=== PATIENT | male | born 1970 | race Caucasian/White ===

== ENCOUNTER 2016-11-22 11:31 | Emergency (ER) | payer OTHER ==
[~2016-11-22] VITALS: Ht 182.9 cm; Wt 119.1 kg
[~2016-11-22 11:31] MED LIST: ATEN50TA PO; BUSP10TA2 PO; CLON0.1T PO; IBUP800T28 PO; OXYC1TAB24 PO; SERT20OR PO
[2016-11-22 11:40] VITALS: BP 154/106; PULSE 86; RESP 18; O2SAT 94
--- NOTE | 2016-11-22 12:28 | ED.REPORT ---
HPI-Bite: Human/Animal Date of Service November 22, 2016 ED Provider: Clay Ta PA-C Yannick is an otherwise healthy 46-year-old male presenting with chief complaint of a rat bite. 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 The rat was not and bit his right middle finger. Patient reports copious bleeding. He washed the injury for approximately 5 minutes with warm soap and water. Patient reports that it has been 9 years since his last tetanus booster. Denies diabetes, HIV, immunosuppression, bleeding/ clotting problems. Nursing Notes Stated Complaint: BITE ON RIGHT MIDDLE FINGER Chief Complaint: Extremity Trauma Nursing Notes Reviewed: Yes Allergies: Coded Allergies: droperidol (Verified Allergy, Unknown, cologenic reaction, 10/19/15) Scheduled Atenolol (Atenolol) 50 Mg Tablet 50 MG PO DAILY Buspirone (Buspirone) 10 Mg Tablet 10 MG PO BID Clonidine (Clonidine) 0.1 Mg Tablet 0.1 MG PO HS Penicillin V Potassium (Penicillin V Potassium) 500 Mg Tablet 500 MG PO QID Sertraline HCl (Zoloft) 20 Mg/1 Ml Oral.conc 25 MG PO BID Scheduled PRN Ibuprofen (Ibuprofen) 800 Mg Tablet 800 MG PO TID PRN PRN For Pain oxyCODONE-Acetaminophen 5-325 mg (oxyCODONE-Acetaminophen 5-325 mg) 1 Each Tablet 1-2 TAB PO Q4H PRN PRN For Pain General Time Seen by MD: 12:11 Chief Complaint Rodent bite Risk Factors Rabies Risk Stratification Rodent - low risk Past Medical History Past Medical History Notes: s/p Epidural injection 06/[address] 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 Right middle finger: Small puncture wound palmar aspect of the distal phalanx. Minimal bleeding. Brisk capillary refill and sensation intact. Full strength and range of motion at MCP PIP and DIP joints. Head: Atraumatic, normocephalic. Eyes: No scleral icterus or injection. No discharge. Vision grossly intact. ENT: Voice clear, hearing grossly intact. Respiratory: No respiratory distress, no increased work of breathing. Speaks in complete sentences. Skin: Warm and dry. Neurological: Grossly nonfocal. Psychological: alert and oriented. Speech appropriate, linear and logical. Behavior appropriate. Vital Signs Vital Signs (First) Date Time Temp Pulse Resp B/P Pulse Ox O2 Delivery O2 Flow Rate FiO2 11/22/16 11:40 37.2 86 18 154/106 94 Room Air Initial VS: Vital signs abnormal (elevated blood pressure) Re-Eval/Medical Decision Med Decision/Clinical Course 38-year-old male presenting with chief complaint of a rapid bite to his right middle finger. Patient states he bent to a cup at rest he thought was in the parking lot at his workplace. The rat was not and bit his right middle finger. Patient reports washed with copious amounts of warm water and soap for 5 minutes. Last tetanus shot 9 years ago. No comorbidities to suggest delayed healing. Physical examination reveals a small puncture wound of the distal phalanx of the right middle finger. Soaked the wound in normal saline with Betadine, applied antibiotic ointment and Band-Aid. Provided tetanus booster. Prescribed penicillin VK 500 mg 4 times a day 3 days according to recommendations of up-to-date. Consult with health Department regarding rabies risk. They report that rats present extremely low risk for rabies and no further testing is necessary. Advised [id number] analgesia. Provided referral to L&I provider for follow-up, provided emergency return precautions. Verbalizes understanding of and consent to plan. Discharge & Departure Impression: Primary Impression: Rat bite Encounter type: initial encounter Qualified Code: W53.11XA - Bitten by rat, initial encounter Additional Impression: Elevated blood pressure reading Disposition: Home Discharge Condition All VS Reviewed: Yes Condition: Stable Additional Instructions: Evaluation in the emergency department for a rat bite involves history and physical examination. At this time the injury appears to be minor and you are stable safely discharged. We have taken some precautions to ensure no complications from this injury. We have soaked the injury in a solution of Betadine and water, dressed it with antibiotic ointment and a bandage. We have given you a tetanus booster here in the emergency department. I am prescribing penicillin 500 mg to be taken 4 times a day for the next 3 days to prevent rat bite fever. According to the Department of Public health, rats are not considered to be a reservoir for rabies and no further testing is required. The pain is best treated with 400 mg of ibuprofen (Advil, Motrin) every 6 hours , or 1000 mg of acetaminophen (Tylenol) every 6 hours. These drugs can be taken at the same time for more severe pain. I will provide you with a referral for follow-up with an L& I occupational health provider, Dr. Abhinav Rojas. Please contact him to be seen in about a week to be sure this is resolving as expected. Return to emergency department for new or worsening symptoms including worsening redness, swelling, pain or the appearance of pus as well as fever, muscle/joint pain, vomiting, sore throat, headache. I also note that your blood pressure was elevated during your visit to the emergency department. Please discuss this with your primary care provider. Referrals: Abhinav Rojas MD EDSupervising Provider for APC: Thai Solorio MD copies to: Abhinav Rojas MD, Seth PA-C November 22, 2016 12:28
[2016-11-22] MEDS ORDERED: PENI500T PO (12:51)
[2016-11-22] MEDS ORDERED: TdaP Vaccine 0.5 mL Inj IM ONE (13:15)
== END 2016-11-22 13:20 | disposition home or self-care (01) ==
LOC: SED 11:31
DX: S61.252A Open bite of right middle finger without damage to nail, initial encounter (principal); W53.11XA Bitten by rat, initial encounter; Y93.89 Activity, other specified; Y92.481 Parking lot as the place of occurrence of the external cause; Y99.0 Civilian activity done for income or pay; I10 Essential (primary) hypertension; Z87.891 Personal history of nicotine dependence; Z23 Encounter for immunization; Z79.899 Other long term (current) drug therapy; Z88.8 Allergy status to other drugs, medicaments and biological substances

== ENCOUNTER 2017-01-09 16:47 | Emergency (ER) | payer OTHER ==
[~2017-01-09] VITALS: Ht 182.9 cm; Wt 122.7 kg
[~2017-01-09 16:47] MED LIST changes: +PENI500T PO
[2017-01-09 16:55] VITALS: BP 175/104; PULSE 88; RESP 18; O2SAT 98
--- NOTE | 2017-01-09 17:04 | ED.REPORT ---
HPI-Back Pain 40 and Over Date of Service Jan 09, 2017 ED Provider: Thai Solorio MD Pt is a 46 y/o male w/ a hx of chronic neck and back pain presenting to the ED c /o left-sided neck pain which has been chronic for the past 3-4 months, significantly worse over the past 3-4 days. His pain radiates down the left arm to the middle finger. The patient is seen by Dr. King for chronic back pain and is scheduled for a neck MRI today at 18:45 but states the pain is too much to be able to lie still in the machine. He c/o associated weakness and numbness of his left middle finger, worse today. He has been taking Ibuprofen all morning and the medication given to him for his chronic back pain without relief. He plans on seeing his pain doctor on 01/13 this week to follow-up regarding the MRI results. He took 800 mg Ibuprofen 4 hours ago. C-spine MRI 08/21/14 interpreted as below: IMPRESSION: 1. Diffuse congenital canal stenosis, with superimposed disc and facet disease as described above. 2. Multilevel canal stenoses, worst at C4-C5, and C5-C6, where mild cord flattening is present. 3. Multilevel foraminal stenoses, worst at C7-T1 on the right. Nursing Notes Stated Complaint: NECK/SHOULDER PAIN Chief Complaint: Back Pain or Injury Nursing Notes Reviewed: Yes Allergies: Coded Allergies: droperidol (Verified Allergy, Unknown, cologenic reaction, 01/09/17) Scheduled Atenolol (Atenolol) 50 Mg Tablet 50 MG PO DAILY Buspirone (Buspirone) 10 Mg Tablet 10 MG PO BID Clonidine (Clonidine) 0.1 Mg Tablet 0.1 MG PO HS Penicillin V Potassium (Penicillin V Potassium) 500 Mg Tablet 500 MG PO QID Sertraline HCl (Zoloft) 20 Mg/1 Ml Oral.conc 25 MG PO BID Scheduled PRN Ibuprofen (Ibuprofen) 800 Mg Tablet 800 MG PO TID PRN PRN For Pain oxyCODONE-Acetaminophen 5-325 mg (oxyCODONE-Acetaminophen 5-325 mg) 1 Each Tablet 1-2 TAB PO Q4H PRN PRN For Pain General Time Seen by MD: 17:03 Chief Complaint Neck pain Hx Obtained From: Patient Arrived By: Walk-in Sudden in Onset?: No Onset Occurred: 3 days ago Symptom Duration: Since onset Caused by: Spontaneous/no mechanism Quality: Painful Radiation: : Arm left Severity: Current: Moderate Severity: Maximum: Moderate Recent Healthcare: Recent doctor visit Past Medical History Past Medical History Hypertension Hypercholesterolemia Chronic Back Pain Chronic neck pain Past Surgical History Cervical Discectomy Epidural injections Smoking History Former Smoker Social History Alcohol Use: Denies alcohol use Drug Use: Denies drug use 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 Physical Exam Initial Vital Signs Vital Signs (First) Date Time Temp Pulse Resp B/P Pulse Ox O2 Delivery O2 Flow Rate FiO2 01/09/17 16:55 37.2 88 18 175/104 98 Room Air Initial VS: Reviewed, Vital signs abnormal Head / Eyes: Atraumatic, Normocephalic, PERRL ENT: Mucous membranes moist, Conjunctiva normal, No scleral icterus Extremities: Vascular intact, Neuro intact Skin: Warm, Dry, No cyanosis Psychiatric: Mood/affect normal, Behavior normal, Normal thought content General/Constitutional: Awake, Alert, No acute distress, Cooperative, Not toxic appearing Appearance / Presentation: Positive: Uncomfortable Respiratory / Chest: Breath sounds NL, Breath sounds = bilat, No respiratory distress, No rales, No rhonchi, No wheezing Cardiovascular: Heart rate NL, Regular rhythm, Heart sounds NL, No gallop, No murmurs, No rubs, Cap refill not delayed, Peripheral circulation NL Abdomen: Soft, Non-tender Back: Full range of motion, Painless range of motion, No midline vertebral tend Neurologic: Oriented X3, Speech NL, No sensory deficits, CN II - XII intact, Cerebellar NL, Memory NL Mild weakness of the left sales management intern strength and biceps flexion Neck: Atraumatic, Supple, No meningismus, Full range of motion, No swelling, No midline vertebral tend Re-Eval/Medical Decision Med Decision/Clinical Course 46-year-old male long history of cervical radiculopathy presenting with progressive or sitting pain over the previous several months. He has an MRI scheduled of the cervical spine in 1 hour by his neurologist. He is here requesting pain medications in anticipation of the MRI. He reports no recent changes in weakness numbness tingling. He does report severe pain today. He does have some left upper extremity weakness and some numbness and tingling in his middle finger which she reports is not new recently has been present for 2 months. His symptoms improved with IV pain medications. Patient will be discharged to the MRI that was scheduled. He will follow up with his neurologist for results. He will return if any new or worsening weakness, numbness, tingling, red flag symptoms. Counseled Regarding: Diagnosis, Lab results, Need for follow-up, When/why to return to ED Discharge & Departure Impression: Primary Impression: Cervical radiculopathy Additional Impression: Neck pain Disposition: Home Discharge Condition All VS Reviewed: Yes Condition: Stable Referrals: INNA PETERS MD (PCP) Dejon King MD Attestation Portions of this note were transcribed by Osman Giron. I, Dr. Solorio personally performed the history, physical exam and medical decision-making; I reviewed and confirmed the accuracy of the information in the transcribed note. Signed by Matthew Shirley, 01/09/17 - 0711 copies to: Dejon King MD; INNA PETERS MD, Ben M MD Jan 09, 2017 17:03 OSMAN GIRON Jan 09, 2017 17:11
[2017-01-09] MEDS ORDERED: Ondansetron 2 mg/mL 2 mL Inj IVPUSH ONE (17:55)
[2017-01-09 18:24] VITALS: BP 169/97; PULSE 88; RESP 18; O2SAT 98
== END 2017-01-09 18:25 | disposition home or self-care (01) ==
LOC: SED 16:47
DX: M54.12 Radiculopathy, cervical region (principal); M54.2 Cervicalgia; G89.29 Other chronic pain; I10 Essential (primary) hypertension; Z87.891 Personal history of nicotine dependence
CPT/HCPCS: 96374; 96375; 99284; J1885; J2270; J2405